=== PATIENT | female | born 1985 | race Hispanic/Latino ===

== ENCOUNTER 2019-12-10 14:14 | Inpatient (IN) | payer OTHER ==
[~2019-12-10] VITALS: Ht 160 cm; Wt 86.8 kg
[2019-12-10] MEDS ORDERED: ONDANSETRON HCL 4 MG/2 ML VIAL ONE (14:32)
[2019-12-10] MEDS ORDERED: KETOROLAC TROMETHAMINE 30MG/ML ONE (14:32)
[2019-12-10 14:46] LABS: BASOPHILS % (AUTO) 0.4 % (0.0-5.0); EOSINOPHILS % (AUTO) 0.7 % (0.0-8.0); HEMATOCRIT 44.1 % (36-48); LYMPHOCYTES % (AUTO) 13.9 % (21.0-51.0); MEAN CORPUSCULAR HEMOGLOBIN 25.5 pg (27.0-33.0); MEAN CORPUSCULAR HGB CONC 31.7 g/dL (32.0-36.0); MEAN CORPUSCULAR VOLUME 80.3 fL (79-99); MONOCYTES % (AUTO) 3.4 % (3.0-13.0); NEUTROPHILS % (AUTO) 81.3 % (40.0-77.0); PLATELET COUNT (AUTO) 243 K/uL (130-400); RED BLOOD CELL COUNT(AUTO) 5.49 MIL/uL (4.00-5.50); RED CELL DISTRIBUTION WIDTH 12.3 % (11.0-15.5); WHITE BLOOD COUNT (AUTO) 13.7 K/uL (4.8-10.8)
[2019-12-10 15:01] LABS: APPEARANCE,URINE Clear (CLEAR); BILIRUBIN,URINE Negative (NEGATIVE); COLOR,URINE Yellow (YELLOW); GLUCOSE, URINE (UA) Negative (NEGATIVE); KETONES,URINE Negative (NEGATIVE); LEUKOCYTE ESTERASE ,URINE Large (NEGATIVE); NITRATE,URINE Negative (NEGATIVE); OCCULT BLOOD,URINE Trace (NEGATIVE); PH,URINE 5.5 (5.0-8.0); PROTEIN,URINE Negative (NEGATIVE); UROBILINOGEN,URINE 0.2 mg/dL (0.2-1.0)
[2019-12-10 15:05] LABS: ALBUMIN 3.8 g/dL (3.5-5.0); BILIRUBIN,TOTAL 0.4 mg/dL (0.2-1.0); CREATININE 0.7 mg/dL (0.5-1.5); POTASSIUM 3.8 mmol/L (3.5-5.1); TOTAL PROTEIN, SERUM 8.6 g/dL (6.0-8.3)
[2019-12-10 15:05] LABS: HCG,QUAL RESULT NEGATIVE (NEGATIVE)
[2019-12-10 15:07] LABS: BACTERIA,URINE Few /HPF (None Seen); RBC,URINE None Seen /HPF (0-1)
[2019-12-10] MEDS ORDERED: ZOSYN 3.375GM+NS 50ML 50 ML IV ONE (16:20)
[2019-12-10] MEDS ORDERED: SODIUM CHLORIDE 0.9% 1000ML 1,000 ML IV SCH (17:46)
[2019-12-10] MEDS ORDERED: ACETAMINOPHEN 325 MG TAB ONE (17:56)
[2019-12-10] MEDS ORDERED: MORPHINE SULFATE 2 MG/ML 1ML SYG IVP PRN (18:00)
[2019-12-10] MEDS ORDERED: ONDANSETRON HCL 4 MG/2 ML VIAL IV PRN (18:00)
[2019-12-10] MEDS ORDERED: MORPHINE SULFATE 2 MG/ML 1ML SYG IV PRN (18:00)
[2019-12-10] MEDS ORDERED: ACETAMINOPHEN 325 MG TAB PO PRN ×3 (18:00)
[2019-12-10] MEDS ORDERED: KETOROLAC TROMETHAMINE 15MG/ML IV PRN (18:00)
[2019-12-10 18:45] VITALS: BP 102/64
--- NOTE | 2019-12-10 19:16 | NUR ---
Rec'd report from ER nurse that in addition to CC abd pain and nausea, pt also c/o cough, had fever 102.7 prior to transfer up to floor. Notified HS Nicole who instructed to place pt on droplet, still ok to accept to MED/SURG. On arrival, pt was 100.7, no dyspnea or cough noted. Reported to Mid-level provider CHAD Sewell. Rec'd orders for droplet and cxr.
[2019-12-10] MEDS ORDERED: ZOSYN 3.375GM+NS 50ML 50 ML IV SCH (20:00)
[2019-12-10] MEDS: LACTATED RINGERS 1000ML 1,000 ML IV SCH (20:40)
[2019-12-10] MEDS: FAMOTIDINE/PF 20 MG/2 ML VIAL IV SCH (20:41)
[2019-12-10] MEDS ORDERED: METRONIDAZOLE 500 MG TABLET PO SCH (21:00)
[2019-12-11] VITALS (26 sets, daily range): BP systolic 90–114; BP diastolic 45–70
[2019-12-11] MEDS: ZOSYN 3.375GM+NS 50ML 50 ML IV SCH ×3 (04:40→21:11)
[2019-12-11 05:10] LABS: BASOPHILS % (AUTO) 0.5 % (0.0-5.0); EOSINOPHILS % (AUTO) 0.5 % (0.0-8.0); HEMATOCRIT 39.9 % (36-48); LYMPHOCYTES % (AUTO) 23.7 % (21.0-51.0); MEAN CORPUSCULAR HEMOGLOBIN 25.4 pg (27.0-33.0); MEAN CORPUSCULAR HGB CONC 31.1 g/dL (32.0-36.0); MEAN CORPUSCULAR VOLUME 81.8 fL (79-99); MONOCYTES % (AUTO) 4.9 % (3.0-13.0); NEUTROPHILS % (AUTO) 70.1 % (40.0-77.0); PLATELET COUNT (AUTO) 297 K/uL (130-400); RED BLOOD CELL COUNT(AUTO) 4.88 MIL/uL (4.00-5.50); RED CELL DISTRIBUTION WIDTH 12.4 % (11.0-15.5)
[2019-12-11 05:26] LABS: ALBUMIN 3.3 g/dL (3.5-5.0); BILIRUBIN,TOTAL 0.5 mg/dL (0.2-1.0); CREATININE 0.8 mg/dL (0.5-1.5); POTASSIUM 3.3 mmol/L (3.5-5.1); TOTAL PROTEIN, SERUM 7.6 g/dL (6.0-8.3)
[2019-12-11] MEDS: LACTATED RINGERS 1000ML 1,000 ML IV SCH ×5 (07:20→20:40)
--- NOTE | 2019-12-11 08:00 | NUR ---
NPO FOR POSSIBLE SURGERY TODAY Addendum: 12/11/19 at 1152 by DANUTA MURPHY RN RN Amended: Links added.
--- NOTE | 2019-12-11 09:30 | NUR ---
DR. CORREA CALLED WITH ORDERS, CANCEL HIDA SCAN AND HAVE PT. SIGN FOR LAP GINGER.PROCEDURE EXPLAINED TO PT. AND SHE IS IN AGREEMENT.
[2019-12-11] MEDS: FAMOTIDINE/PF 20 MG/2 ML VIAL IV SCH ×2 (10:05→21:11)
[2019-12-11] MEDS ORDERED: LIDOCAINE PF 2% 5ML ABBOJECT ONE (10:22)
[2019-12-11] MEDS ORDERED: SUCCINYLCHOLINE 200MG/10ML SYR ONE (10:22)
[2019-12-11] MEDS ORDERED: ROCURONIUM 10MG/1ML SYR 10 MG/ML ML ONE (10:23)
[2019-12-11] MEDS ORDERED: FENTANYL CITRATE PF 50 MCG/1 ML 2ML VIAL ONE ×2 (10:23→11:45)
[2019-12-11] MEDS ORDERED: PROPOFOL 10 MG/ML 20ML VIAL IV ONE (10:23)
--- NOTE | 2019-12-11 10:30 | NUR ---
TO OR NOW.
[2019-12-11] MEDS ORDERED: BUPIVACAINE/PF 0.5% 30ML VIAL ONE (11:11)
[2019-12-11] MEDS ORDERED: NEOSTIGMINE 5MG/5ML SYR IV ONE (11:38)
[2019-12-11] MEDS ORDERED: GLYCOPYRROLATE 1 MG/5 ML SYRINGE ONE (11:38)
[2019-12-11] MEDS ORDERED: KETOROLAC TROMETHAMINE 30MG/ML ONE (11:38)
[2019-12-11] MEDS ORDERED: MEPERIDINE-PF 25 MG/ML SYG ONE (11:39)
[2019-12-11] MEDS ORDERED: ONDANSETRON HCL 4 MG/2 ML VIAL ONE (11:40)
--- NOTE | 2019-12-11 12:45 | NUR ---
POST OP NOTE:RETURNED TO ROOM . AWAKE AND ALERT AND STATES ABD. HURTS. BP 99/72, HR 78, RR RATE 18 TEMP 98. BAND AIDS IN PLACE TO SURGICAL SM. WOUNDS. WILL START ON CL. LIQ.
[2019-12-11] MEDS ORDERED: POTASSIUM CHLORIDE 20MEQ/100ML 100 ML IV PRN (14:00)
[2019-12-11] MEDS ORDERED: LIDOCAINE HCL-MPF 1% 2ML VIAL IV PRN (14:00)
[2019-12-11] MEDS ORDERED: POTASSIUM CHLORIDE 10% ELIXIR 20 MEQ/15 ML UDCUP PO PRN (14:00)
--- NOTE | 2019-12-11 14:43 | NUR ---
cm note pt resides at home with spouse, independent with adls and ambulation. no dme. no home services. dc plan is back to home. no dc needs. Addendum: 12/11/19 at 1446 by DUGLAS BARAJAS CM Amended: Links added.
--- NOTE | 2019-12-11 15:12 | NUR ---
MEDICATED FOR CO OF PAIN TO SURGICAL ABDOMEN.
[2019-12-12] MEDS: LACTATED RINGERS 1000ML 1,000 ML IV SCH ×2 (01:05→08:29)
[2019-12-12 03:49] VITALS: BP 101/54
[2019-12-12] MEDS: ZOSYN 3.375GM+NS 50ML 50 ML IV SCH ×2 (05:18→11:36)
[2019-12-12 05:36] LABS: HEMATOCRIT 35.4 % (36-48); MEAN CORPUSCULAR HEMOGLOBIN 25.2 pg (27.0-33.0); MEAN CORPUSCULAR HGB CONC 31.4 g/dL (32.0-36.0); MEAN CORPUSCULAR VOLUME 80.3 fL (79-99); PLATELET COUNT (AUTO) 255 K/uL (130-400); RED BLOOD CELL COUNT(AUTO) 4.41 MIL/uL (4.00-5.50); RED CELL DISTRIBUTION WIDTH 12.3 % (11.0-15.5); WHITE BLOOD COUNT (AUTO) 10.5 K/uL (4.8-10.8)
[2019-12-12 05:55] LABS: ALBUMIN 2.6 g/dL (3.5-5.0); BILIRUBIN,TOTAL 0.3 mg/dL (0.2-1.0); CREATININE 0.9 mg/dL (0.5-1.5); POTASSIUM 3.4 mmol/L (3.5-5.1); TOTAL PROTEIN, SERUM 7.1 g/dL (6.0-8.3)
[2019-12-12 06:39] LABS: LYMPHOCYTES % (MANUAL) 21 % (22-44); MAN.DIFF COMMENT-IMPRESSION MANUAL DIFFERENTIAL; MONOCYTES % (MANUAL) 4 % (2-9); SEGMENTED NEUTROPHILS % 75 % (40-70)
[2019-12-12 06:40] LABS: PLATELET MORPHOLOGY COMMENT ADEQUATE
[2019-12-12 08:00] VITALS: BP 107/60
[2019-12-12] MEDS: FAMOTIDINE/PF 20 MG/2 ML VIAL IV SCH (08:29)
[2019-12-12] MEDS: POTASSIUM CHLORIDE 20 MEQ ERTAB PO PRN ×2 (08:30→11:36)
[2019-12-12 12:00] VITALS: BP 115/60
[2019-12-12] MEDS ORDERED: LEVO500T2 PO (23:57)
== END 2019-12-12 16:15 | disposition home or self-care (01) | DRG 854 ==
LOC: EDH 14:14 → EDHIP 17:46 → 3DH 19:08
PROVIDERS: ADMIT Internal Medicine; ATTEND Internal Medicine
PROC: 0FT44ZZ Resection of Gallbladder, Percutaneous Endoscopic Approach (ICD-10-PCS; principal; 2019-12-11 11:05)
DX: A41.9 Sepsis, unspecified organism (principal); K80.00 Calculus of gallbladder with acute cholecystitis without obstruction; N39.0 Urinary tract infection, site not specified; E66.01 Morbid (severe) obesity due to excess calories; F32.9 Major depressive disorder, single episode, unspecified; F41.9 Anxiety disorder, unspecified; Z68.33 Body mass index [BMI] 33.0-33.9, adult; Z87.440 Personal history of urinary (tract) infections
CPT/HCPCS: 36415; 71045; 76705; 80053; 81001; 81025; 82728; 83615; 83690; 83735; 84145; 85025; 87077; 87088; 87186; 93005; G0378; J0330; J1885; J2001; J2175; J2405; J2543; J2704; J2710; J3010; J3490; J7030; J7120